=== PATIENT | male | born 1985 | race Hispanic/Latino ===

== ENCOUNTER 2017-12-08 09:58 | Emergency (ER) | payer MEDICAID, OTHER ==
[2017-12-08 09:58] VITALS: BMI 43.9
[2017-12-08 10:12] VITALS: RESP 18; TEMP 97.8
[2017-12-08] MEDS ORDERED: Sodium Chloride 0.9% 1,000 ML IV STA (10:24)
[2017-12-08] MEDS ORDERED: DiphenhydrAMINE 50 mg/ml Inj IVP STA (10:24)
--- NOTE | 2017-12-08 10:24 | ED PDOC ---
Arrival/HPI - General Chief Complaint: Headache Time Seen by Provider: 12/08/17 10:12 Historian: Patient - History of Present Illness Narrative History of Present Illness (Text): 12/08/17 10:25 32 year old male, with past medical history of migraine, hypertension and diabetes, currently non-compliant with medications, presents to the Emergency department complaining of left sided headache, nonradiating, since waking up at 9am this morning. Patient informs sharp, squeezing pain associated with lightheadedness and nausea. As per patient, symptoms exacerbate in the presence of bright light prompting him to present to the Emergency department for medical evaluation. Patient states similar symptoms to past episodes of migraine but is worse today. Patient informs taking 4 Advil prior to arrival with no improvement to symptoms. Patient denies any fevers, chills, chest pain, shortness of breath, dyspnea on exertion, cough, abdominal pain, nausea, vomiting, diarrhea, back pain, neck pain, numbness/tingling or any other complaints. PMD: NONE Time/Duration: 1-3 hours Symptom Onset: Gradual Symptom Course: Unchanged Quality: Aching Activities at Onset: Light Context: Home Past Medical History - Provider Review Nursing Documentation Reviewed: Yes - Infectious Disease Hx of Infectious Diseases: None - Cardiac Hx Cardiac Disorders: Yes Hx Hypertension: Yes - Pulmonary Hx Respiratory Disorders: No - Neurological Hx Neurological Disorder: No - HEENT Hx HEENT Disorder: No - Renal Hx Renal Disorder: No - Endocrine/Metabolic Hx Endocrine Disorders: Yes Hx Diabetes Mellitus Type 2: Yes - Hematological/Oncological Hx Blood Disorders: No - Integumentary Hx Dermatological Disorder: No - Musculoskeletal/Rheumatological Hx Musculoskeletal Disorders: No - Gastrointestinal Hx Gastrointestinal Disorders: No - Genitourinary/Gynecological Hx Genitourinary Disorders: No - Psychiatric Hx Psychophysiologic Disorder: No Hx Substance Use: No - Surgical History Hx Appendectomy: Yes - Anesthesia Hx Anesthesia: Yes Hx Anesthesia Reactions: No Hx Malignant Hyperthermia: No Family/Social History - Physician Review Nursing Documentation Reviewed: Yes Family/Social History: No Known Family HX Smoking Status: Light Smoker < 10 Cigarettes Daily Hx Alcohol Use: No Hx Substance Use: No Allergies/Home Meds Allergies/Adverse Reactions: Allergies pepper (genus Capsicum) [pepper] Allergy (Verified 06/13/15 16:34) ANAPHYLAXIS Review of Systems - Physician Review All systems were reviewed & negative as marked: Yes - Review of Systems Constitutional: absent: Fevers Respiratory: absent: SOB, Cough Cardiovascular: absent: Chest Pain, BAILEY Gastrointestinal: absent: Abdominal Pain, Diarrhea, Nausea, Vomiting Musculoskeletal: absent: Back Pain, Neck Pain Neurological: Headache, Dizziness Physical Exam - Physical Exam Narrative Physical Exam (Text): 12/08/17 10:34 Constitutional: No acute distress. Lying in stretcher, keeping eyes closed. Head: Normocephalic. Atraumatic. Eyes: PERRL. ENT: Moist mucous membranes. Neck: Supple. No nuchal rigidity. Cardiovascular: Regular rate. Chest: No tenderness. Respiratory: Clear to auscultation bilaterally. GI: Soft. Nontender. Nondistended. Back: No CVA tenderness. Musculoskeletal: No tenderness or swelling of extremities. Skin: No rash. Neurologic: Alert, no focal deficit. Motor 5/5 x4, no focal deficits. Vital Signs Reviewed: Yes Vital Signs Temp Pulse Resp BP Pulse Ox 12/08/17 14:28 97.8 F 82 18 182/97 H 98 12/08/17 13:43 87 18 187/106 H 97 12/08/17 11:59 89 18 183/107 H 98 12/08/17 10:06 97.8 F 96 H 18 206/144 H 97 Temperature: Afebrile Blood Pressure: Hypertensive Pulse: Regular Respiratory Rate: Normal Appearance: Positive for: Well-Appearing, Non-Toxic, Comfortable Pain Distress: None Mental Status: Positive for: Alert and Oriented X 3 Finger Stick Blood Glucose: 233 Medical Decision Making ED Course and Treatment: 12/08/17 10:36 Impression: 32 year old male presents to the Emergency department complaining of headache, lightheadedness, and nausea. Differential Diagnosis included but are not limited to: Migraine Plan: -- CT of head -- Labs -- Chest X-ray -- Benadryl -- Reglan -- IV fluids -- Tylenol -- Reassess and disposition Prior Visits: Notes and results from previous visits were reviewed. Progress Notes: 12/08/17 11:30 CT of head reviewed by radiologist, shows: No evidence of acute intracranial hemorrhage intracranial collection mass effect or midline shift. No significant interval changes noted since the previous exam. 12/08/17 11:30 Chest X-ray reviewed by radiologist, shows no active disease. Patient felt better after treatment. Discharged home, instructed to follow up with primary care for further Hypertension management. - Lab Interpretations Lab Results: 12/08/17 11:15 12/08/17 11:15 Lab Results 12/08/17 11:15: Sodium 135, Potassium 3.3 L, Chloride 97 L, Carbon Dioxide 25, Anion Gap 17, BUN 13, Creatinine 0.5 L, Est GFR ( Amer) > 60, Est GFR ( Non-Af Amer) > 60, Random Glucose 282 H, Calcium 8.3 L, Total Bilirubin 0.5, AST 25, ALT 37, Alkaline Phosphatase 121, Total Protein 7.4, Albumin 3.9, Globulin 3.5, Albumin/Globulin Ratio 1.1 12/08/17 11:15: WBC 7.2 D, RBC 5.57, Hgb 16.8, Hct 44.5, MCV 79.9 L, MCH 30.2, MCHC 37.8 H, RDW 12.4, Plt Count 251, MPV 10.2, Gran % 49.6 L, Lymph % (Auto) 40.6 H, [place] % (Auto) 4.1, Eos % (Auto) 4.9, Baso % (Auto) 0.8, Gran # 3.55, Lymph # (Auto) 2.9, [place] # (Auto) 0.3, Eos # (Auto) 0.4, Baso # (Auto) 0.06 12/08/17 10:15: POC Glucose (mg/dL) 233 H - RAD Interpretation Radiology Orders: 12/08/17 10:23 CHEST TWO VIEWS (PA/LAT) [RAD] Stat 12/08/17 10:24 HEAD W/O CONTRAST [CT] Stat - Medication Orders Current Medication Orders: Discontinued Medications Acetaminophen (Tylenol 325mg Tab) 975 mg PO STAT STA Stop: 12/08/17 10:25 Last Admin: 12/08/17 10:46 Dose: 975 mg Diphenhydramine HCl (Benadryl) 50 mg IVP STAT STA Stop: 12/08/17 10:25 Last Admin: 12/08/17 10:46 Dose: 50 mg IVP Administration Document 12/08/17 10:46 [facility] (Rec: 12/08/17 10:46 [facility]-[id number]) Charges for Administration # of IVP Administrations 1 Sodium Chloride (Sodium Chloride 0.9%) 1,000 mls @ 999 mls/hr IV .Q1H1M STA Stop: 12/08/17 11:24 Last Admin: 12/08/17 10:45 Dose: 999 mls/hr eMAR Start Stop Document 12/08/17 10:45 [facility] (Rec: 12/08/17 10:46 [facility]-[id number]) Intravenous Solution Start Date 12/08/17 Start Time 10:46 End Date 12/08/17 End time 11:46 Total Infusion Time 60 Metoclopramide HCl (Reglan) 10 mg IVP STAT STA Stop: 12/08/17 10:25 Last Admin: 12/08/17 10:46 Dose: 10 mg IVP Administration Document 12/08/17 10:46 [facility] (Rec: 12/08/17 10:46 [id number] Charges for Administration # of IVP Administrations 1 - Scribe Statement The provider has reviewed the documentation as recorded by the Scribe Shalom Cole. All medical record entries made by the Scribe were at my direction and personally dictated by me. I have reviewed the chart and agree that the record accurately reflects my personal performance of the history, physical exam, medical decision making, and the department course for this patient. I have also personally directed, reviewed, and agree with the discharge instructions and disposition. Disposition/Present on Arrival - Present on Arrival Any Indicators Present on Arrival: No History of DVT/PE: No History of Uncontrolled Diabetes: No Urinary Catheter: No History of Decub. Ulcer: No History Surgical Site Infection Following: None - Disposition Have Diagnosis and Disposition been Completed?: Yes Diagnosis: Headache, Hypertension Disposition: HOME/ ROUTINE Disposition Time: 13:59 Patient Plan: Discharge Condition: STABLE Discharge Instructions (ExitCare): High Blood Pressure in Adults, Headache, Adult Referrals: [facility] at [facility] [place] [Outside] - Follow up with primary Forms: [employer] (Bel[place]ian)
[2017-12-08 11:44] LABS: BASO # 0.06 K/mm3 (0.0-2.0); BASO % 0.8 % (0.0-3.0); EOS # 0.4 (0.0-0.7); EOS % 4.9 % (1.5-5.0); GRAN # 3.55 (1.4-6.5); GRAN % 49.6 % (50.0-68.0); HEMOGLOBIN 16.8 g/dL (14.0-18.0); LYMPH # 2.9 (1.2-3.4); LYMPH % 40.6 % (22.0-35.0); MEAN CELL VOLUME 79.9 fl (80.0-105.0); MEAN CORPUSCULAR HEMOGLOBIN 30.2 pg (25.0-35.0); MEAN CORPUSCULAR HGB CONC 37.8 g/dl (31.0-37.0); MEAN PLATELET VOLUME 10.2 fl (7.0-11.0); MONO # 0.3 (0.1-0.6); MONO % 4.1 % (1.0-6.0); RBC 5.57 10^6/uL (3.5-6.1); RED CELL DISTRIBUTION WIDTH 12.4 % (11.5-14.5); WHITE BLOOD COUNT 7.2 10^3/ul (4.5-11.0)
[2017-12-08 11:52] LABS: ALB/GLOB RATIO 1.1 (1.1-1.8); ALBUMIN 3.9 g/dL (3.0-4.8); ALT/SGPT 37 U/L (7-56); AST/SGOT 25 U/L (17-59); BLOOD UREA NITROGEN 13 mg/dL (7-21); CALCIUM 8.3 mg/dL (8.4-10.5); GFR NON-AFRICAN AMERICAN > 60
--- NOTE | 2017-12-08 11:59 | CT ---
Date of service: 12/08/2017 PROCEDURE: CT HEAD WITHOUT CONTRAST. HISTORY: headache, HTN COMPARISON: Comparison is made with 06/13/2015 TECHNIQUE: Axial computed tomography images were obtained through the head/brain without intravenous contrast. Radiation dose: Total exam DLP = 1396.2 mGy-cm. This CT exam was performed using one or more of the following dose reduction techniques: Automated exposure control, adjustment of the mA and/or kV according to patient size, and/or use of iterative reconstruction technique. FINDINGS: HEMORRHAGE: No intracranial hemorrhage. BRAIN: No mass effect or edema. No atrophy or chronic microvascular ischemic changes. VENTRICLES: Unremarkable. No hydrocephalus. CALVARIUM: Unremarkable. PARANASAL SINUSES: Unremarkable as visualized. No significant inflammatory changes. MASTOID AIR CELLS: Unremarkable as visualized. No inflammatory changes. OTHER FINDINGS: None. IMPRESSION: No evidence of acute intracranial hemorrhage intracranial collection mass effect or midline shift. No significant interval changes noted since the previous exam.
--- NOTE | 2017-12-08 12:25 | RAD ---
Date of service: 12/08/2017 HISTORY: htn COMPARISON: Comparison is made with 04/14/2017 TECHNIQUE: Chest PA and lateral FINDINGS: LUNGS: No active pulmonary disease. PLEURA: No significant pleural effusion identified. No pneumothorax apparent. CARDIOVASCULAR: Normal. OSSEOUS STRUCTURES: No significant abnormalities. VISUALIZED UPPER ABDOMEN: Normal. OTHER FINDINGS: None. IMPRESSION: No active disease.
[2017-12-08 14:30] VITALS: BP 182/97; PULSE 82; O2SAT 98
--- NOTE | 2017-12-08 22:02 | CARD ---
APPROVED REPORT Date of service: 12/08/2017 EKG Measurement Heart [id number] <Conclusion> Sinus tachycardia Otherwise normal ECG
== END 2017-12-08 14:30 | disposition home or self-care (01) ==
LOC: ED 09:58
DX: R51 Headache (principal); I10 Essential (primary) hypertension; E11.9 Type 2 diabetes mellitus without complications; F17.210 Nicotine dependence, cigarettes, uncomplicated
CPT/HCPCS: 70450; 71046; 80053; 82948; 85025; 93005; 96361; 96374; 96375; 99285; J1200; J2765; J7030